=== PATIENT | male | born 1970 | race Caucasian/White ===

== ENCOUNTER 2020-05-25 06:21 | Inpatient (IN) | payer OTHER ==
[2020-05-18 09:31] LABS: HEMATOCRIT 42.2 % (42.0-52.0); HEMOGLOBIN 14.1 gm/dL (14.0-18.0); MCH 30.9 pg (26.0-34.0); MCHC 33.5 g/dL (28.0-37.0); MCV 92.3 fL (80.0-100.0); RBC 4.57 mil/uL (4.50-6.00); RDW 13.5 % (10.5-14.5); WBC 5.8 thou/uL (4.0-11.0)
[2020-05-18 09:32] LABS: URINE BILIRUBIN NEGATIVE (Negative); URINE BLOOD NEGATIVE (Negative); URINE CLARITY CLEAR; URINE COLOR YELLOW; URINE GLUCOSE-RANDOM* NEGATIVE (Negative); URINE KETONES NEGATIVE (Negative); URINE LEUKOCYTES-REFLEX NEGATIVE (Negative); URINE NITRITE-REFLEX NEGATIVE (Negative); URINE PROTEIN (DIPSTICK) NEGATIVE (Negative); URINE UROBILINOGEN 0.2 E.U./dl (0.2-1.0)
[2020-05-18 09:40] LABS: ALBUMIN 4.5 g/dL (3.4-5.0); CALCIUM 9.4 mg/dL (8.5-10.1); POTASSIUM 4.6 mmol/L (3.5-5.1)
[2020-05-18 09:45] LABS: PROTIME 9.7 Seconds (9.3-11.4)
[2020-05-25] VITALS (7 sets, daily range): BP systolic 109–121; BP diastolic 68–82
[~2020-05-25] VITALS: Ht 177.8 cm; Wt 64.4 kg
[~2020-05-25 06:21] MED LIST: CBD PO; MELATONIN10 M3 PO; MULTIVITAMINS1 EAC7 PO; NORTRIPTYLINE H10 M1 PO; SYNTHROID50 MCG PO; XANAX XR1 MG PO
--- NOTE | 2020-05-25 14:00 | NUR ---
PT ARRIVED ON THE UNIT, RAÚL DRESSING CDI WITH ICE PACK ON LEG. PAIN CONTROLLED WITH ORAL AND IV MEDS. PT HAS IV IN LEFT HAND WITH FLUIDS CONNECTED. 2L O2 PER NC. SKIN INTACT. WILL CONTINUE TO MONITOR.
--- NOTE | 2020-05-25 16:18 | NUR ---
PT ARRIVED ON UNIT, AOX4, VSS, DENIES PAIN AT THIS TIME. PT TOES ON HER RIGHT FOOT ARE PINK AND WARM TO TOUCH. 2+ PULSES ON RIGHT FOOT. PT REPORTS HER LEG FEELS HEAVY FROM THE ANES.BLOCK, SPLINT, SONIA WRAP, ICE PACK ON RLE. RLE ELEVATED ON A PILLOW. RIGHT HAND IV IS PATENT. NURSE EDUCATED TO USE CALL LIGHT. WILL CONTINUE TO MONITOR.
[2020-05-26 04:11] VITALS: BP 118/80
--- NOTE | 2020-05-26 06:14 | NUR ---
PT AOX4. PT REPORTS 5-10/10 PAIN IN LEFT HIP. PT DENIES SOB WHILE ON ROOM AIR. PT RECEIVING SCHEDULED OXYCODONE CONTROLLED RELEASE BID, PRN PO OXYCODONE Q4HR, AND PRN IV MORPHINE Q1HR. PT REPORTS NUMBNESS IN LEFT FOOT, TINGLING IN BOTH HANDS, AND SPASMS IN LLE. CAPILLARY REFILL LESS THAN 3SEC IN ALL EXTREMITIES, FAINT PEDAL PULSES, +2 PULSES IN ALL EXTREMITIES. PT TOLERATING PO INTAKE OF FLUIDS, DIET ADVANCED TO REGULAR, PT TOLERATING PO INTAKE OF REGULAR DIET WITHOUT ISSUE. PT VOIDING PER URINAL. PT RESTING IN BED THROUGHOUT SHIFT, FREQUENT REPOSITIONING ENCOURAGED. PT NOTED TO SHIFT INDEPENDENTLY WHILE IN BED. HEMOVAC DRAIN NOTED TO BE PARTIALLY OUT, DRESSING REINFORCED, BLOODY DRAINAGE NOTED TO GET ONTO BED. PT ENCOURAGED TO NOTIFY STAFF FOR ALL NEEDS, CALL LIGHT WITHIN REACH, BED ALARM ON, BED IN LOWEST POSITION, FREQUENT MONITORING WILL CONTINUE.
[2020-05-26 06:17] LABS: ABSOLUTE NEUTROPHILS 10.1 thou/uL (1.4-8.2); BASOPHILS 0.1 % (0.0-2.0); EOSINOPHILS 0.4 % (0.0-3.0); HEMATOCRIT 36.1 % (42.0-52.0); HEMOGLOBIN 11.7 gm/dL (14.0-18.0); LYMPHOCYTES 14.6 % (24.0-44.0); MCH 30.3 pg (26.0-34.0); MCHC 32.3 g/dL (28.0-37.0); MCV 93.7 fL (80.0-100.0); MONOCYTES 7.7 % (1.0-8.0); PLATELET COUNT 215 thou/uL (150-400); POLYS 77.2 % (36.0-66.0); RBC 3.86 mil/uL (4.50-6.00); RDW 13.3 % (10.5-14.5); WBC 13.1 thou/uL (4.0-11.0)
[2020-05-26 06:46] LABS: CALCIUM 8.5 mg/dL (8.5-10.1); MAGNESIUM 2.2 mg/dL (1.8-2.4); POTASSIUM 3.9 mmol/L (3.5-5.1)
[2020-05-26 08:08] VITALS: BP 124/77
--- NOTE | 2020-05-26 11:20 | NUR ---
ASSESSMENT: CM REVIEWED CHART AND SPOKE WITH PT. PT IS ALERT AND ORIENTED X4. PT IS S/O HIP REPLACEMENT. PT LIVES IN A HOUSE WITH HIS . PT REPORTS 2 STEPS TO ENTER THE HOME WITH NO HANDRAILS. PT HAS ABOUT 13 STEPS WITH HANDRAILS TO HIS BEDROOM. PT IS NORMALLY INDEPENDENT WITH ADLS AND AMBULATION. PT REPORTS HE IS NOT WANTING OUTPATIENT THERAPY OR HH BUT STATES HE WILL TALK WITH THE PHYSICIAN IF HE HAS TO DO OUTPATIENT. PT REPORTS HE HAS HAD MULTIPLE SURGERIES AND FEELS COMFORTABLE GOING HOME WITH NO THERAPY. PT IS NEEDING A WALKER FOR HOME. PT HAS NO PREFERENCE OF [place]. CM SPOKE WITH PROVIDER [employer] WHO CAN PROIVDE PT WITH ONE AND IT WAS DELIVERED TO HIS ROOM. PT WILL CONTINUE TO WORK WITH THERAPY AND DISCHARGE HOME ONCE CLEARED. PT WILL HAVE NO FURTHER NEEDS FROM CM PRIOR TO DISCHARGE.
--- NOTE | 2020-05-26 11:30 | O ---
[facility] [place] [address] [place] [address] OPERATIVE REPORT Name: CHRIS LOPEZ Room #: 440-P [facility] IN M.R.#: [id number] Admission: 05/25/20 Attend Phys: Po rOtega MD Discharge: Date of : 72 Report #: [id number] THIS REPORT FOR: cc: Diann Pablo MD,Po Chen MD, MD ~ CC: Po Pablo DATE OF SERVICE: 05/25/2020 PREOPERATIVE DIAGNOSIS: Degenerative arthritis, left hip. POSTOPERATIVE DIAGNOSIS: Degenerative arthritis, left hip. PROCEDURE: Left total hip replacement. SURGEON: Po Ortega MD INDICATIONS: This 50-year-old gentleman has had chronic problems with left hip pain. Clinical and x-ray exam have suggested mild degenerative change, but his subjective symptoms have been much more severe. He has been on multiple pain medications and anti-inflammatories and has adjusted his activities. There is no clear evidence of AVN or fracture, but his symptoms are severe and seemed unresponsive to conservative measures. There is some evidence of cartilage damage and labral damage on MRI study. Given these findings and persistent symptoms, he has elected to go ahead with total hip replacement. DESCRIPTION OF PROCEDURE: The patient was taken to the operating room where he was placed under general anesthesia. Prophylactic intravenous antibiotics were administered. He was turned to the right lateral decubitus position. The left hip, thigh and leg were meticulously prepped and draped. A slightly curving posterolateral skin incision was made and carried through fascia and gluteus to expose the posterior aspect of the hip joint. The short external rotators and capsule were taken down and preserved and tagged with several #1 FiberWire sutures. The hip was dislocated posteriorly. There appears to be moderate cartilage damage on both the femoral head and acetabulum. There was more significant labral damage with slightly inverted flap tear, which may have been contributing to his symptoms. A femoral neck osteotomy was performed. The canal was opened with reamers and hand broaches. The Zamora and Nephew hip system was utilized. The femur seemed to be best suited for a size 12 standard offset stem. The trial stem was removed and attention directed to the acetabulum. The acetabulum was sequentially reamed, gradually advancing to a 52 mm diameter reamer. A 52 mm 3-hole shell was then inserted, positioning this in alignment with his true acetabulum, placed this in about 45 degrees off vertical and about 15 degrees of anteversion. It seated nicely and appeared to be [address] [address] OPERATIVE REPORT Name: CHRIS LOPEZ Room #: 440-P [facility] IN .R.#: [id number] Admission: 05/25/20 Attend Phys: Po Ortega MD Discharge: Date of : 72 Report #: [id number]. In addition, 3 cancellous screws were placed through the apical holes engaging good periacetabular bone and adding to stability. A Zamora and Nephew 36 mm polyethylene liner was then inserted. This was positioned with the 20-degree elevated rim at about the 10 o'clock posterior position. It seated nicely and appeared to be secure. The Zamora and Nephew size 12 Synergy porous femoral component was then impacted into the canal, placing this in about 15 degrees of anteversion. It also seated nicely and appeared to be secure. A trial reduction was performed and the hip seemed best suited for a size 36 head with a +4 mm neck length. This resulted in satisfactory range of motion, alignment, stability and leg length. The permanent head was then selected. This is a Zamora and Nephew Oxinium 36 mm diameter with a 4 mm neck length. This was impacted on the Holt taper. The hip was once again reduced. Alignment, range of motion, stability and leg length were assessed and felt to be satisfactory. The entire wound was copiously irrigated. Good hemostasis was confirmed. A single Hemovac was left in the wound exiting through a separate stab incision. The fascia was closed with multiple #1 Vicryl sutures. The subcutaneous tissues were closed with 0 Monocryl. The skin was closed with skin susanne. A sterile dressing was applied. The patient was awakened and returned to recovery room in good condition. <ELECTRONICALLY SIGNED> By: Po Ortega MD 05/26/20 1130 [id number] [id number] Po Ortega MD /nt
[2020-05-26] MEDS ORDERED: PERCOCET 10-321 EACH PO (11:43)
[2020-05-26] MEDS ORDERED: XARELTO10 MG PO (11:43)
[2020-05-26 12:10] VITALS: BP 124/77
--- NOTE | 2020-05-26 13:03 | NUR ---
Assumed care of patient at 0700. Pt. was calm and cooperative. The hemovac drain was leaking onto the pt's bed. Dr. Ortega was contacted, order received to DC drain and pad with 4x4. Pt. was cleared for discharge by Jordan. Discharge information, education, and perscriptions given to pt. Pt. left unit with all belongings.
--- NOTE | 2020-05-29 09:46 | D ---
[facility] [place] [address] [place] [address] DISCHARGE SUMMARY Name: CHRIS LOPEZ Room #: 440-P [facility] IN M.R.#: [id number] Admission: 05/25/20 Attend Phys: Po Ortega MD Discharge: 05/26/20 Date of : 72 Report #: [id number] THIS REPORT FOR: cc: Diann Pablo MD, Susan L. MD Clymer, David J. MD ~ THIS REPORT FOR: //name// CC: Po Pablo DATE OF SERVICE: 05/26/2020 FINAL DIAGNOSIS: Degenerative arthritis, left hip. OPERATION PROCEDURES: Left total hip replacement. HISTORY OF PRESENT ILLNESS: This 50-year-old gentleman has chronic problems with left hip pain extending over the past 10 years. Clinical exam and x-rays reveal moderate degenerative change. MRI study confirms more severe cartilage damage and labral damage. He has not seen much improvement with multiple conservative measures. He has elected to go ahead with left total hip replacement. HOSPITAL COURSE: The patient was admitted and taken to the operating room and underwent left total hip replacement, which he tolerated well. Postoperatively, there was a moderate Hemovac drainage, which decreased the following morning with a total output of about 470 mL. His hemoglobin dipped slightly, but remains stable. There is no further drainage this morning. The dressing seems dry. His postoperative x-rays looked good. He has no other complaints or symptoms and is already functionally independent with a walker and has passed physical therapy. He is taking a regular diet and doing nicely. His pain is well controlled using oxycodone on an occasional basis. The patient and his feel he is safe and ready for discharge home today. DISCHARGE MEDICATIONS: Include oxycodone 10 mg q.4-6 hours p.r.n. for pain and Xarelto 10 mg daily. I have asked him to call me should there be any problems or questions. I will plan to see him back in my office in 1 week for routine followup and in 2 weeks for suture removal. <ELECTRONICALLY SIGNED> By: Po Ortega MD 05/29/20 0946 [id number] Po Ortega MD /nt
== END 2020-05-26 12:40 | disposition home or self-care (01) | DRG 470 ==
LOC: OR 06:21 → TBA 06:32 → PRE 08:06 → EDSTATUS 11:24 → OR 11:26 → 4S 12:24 → PRE 14:03 → 4S 05-26 12:40
PROVIDERS: Nurse Practitioner; ADMIT Orthopaedic Surgery; ATTEND Orthopaedic Surgery
PROC: 0SRB06Z Replacement of Left Hip Joint with Oxidized Zirconium on Polyethylene Synthetic Substitute, Open Approach (ICD-10-PCS; principal; 2020-05-25)
DX: M16.12 Unilateral primary osteoarthritis, left hip (principal); C85.90 Non-Hodgkin lymphoma, unspecified, unspecified site; E03.9 Hypothyroidism, unspecified; K21.9 Gastro-esophageal reflux disease without esophagitis; Z20.828 Contact with and (suspected) exposure to other viral communicable diseases; Z92.21 Personal history of antineoplastic chemotherapy; Z92.3 Personal history of irradiation
CPT/HCPCS: 10102; 50010; 50101; 50382; 50414; 51412; 53000; 53368; 56521; 56525; 56530; 57095; 62110; 62900; 70005